=== PATIENT | female | born 1970 | race Caucasian/White ===

== ENCOUNTER 2017-11-28 06:32 | Inpatient (IN) ==
--- NOTE | 2017-11-28 07:17 | Emergency Department Report ---
Female Urogenital HPI - General Chief complaint: Urogenital-Female Stated complaint: excessive vag bleeding Time Seen by Provider: 11/28/17 07:01 Source: patient, RN notes reviewed, old records reviewed Mode of arrival: ambulatory Limitations: no limitations - History of Present Illness HPI Narrative: 47yo woman presents to the ER this AM for 'excessive vaginal bleeding'. When pt awoke and went to the bathroom today, she noted a 'large amount of dark red blood' in the toilet. Pt has not had a menses in '8 years', so new vaginal bleeding was concerning. Pt has had no discharge since, and is not wearing a pad on presentation. Pt was evaluated in this ER last night and dx'ed with a UTI - her first ever. She was given her first dose of bactrim and pyridium. She was not warned that pyridium can cause abnormally colored urine. MD Complaint: dysuria Onset (ago): hour(s) Radiation: non-radiating Severity: moderate Severity scale (1-10): 5 Duration: now resolved Associated symptoms: abdominal pain, nausea/vomiting, fever/chills - Related Data Home Medications Medication Instructions Recorded Confirmed Bisoprolol/Hctz 5/6.25 [Ziac] 1 tab PO DAILY #0 tab 12/12/13 11/28/17 Levothyroxine Sodium 137 mcg PO ACB #1 tab 12/12/13 11/28/17 Previous Rx's Medication Instructions Recorded Sulfamethox/Tmp [Bactrim Ds] 1 tab PO BID #20 tab 11/27/17 Allergies Allergy/AdvReac Type Severity Reaction Status Date / Time cefaclor Allergy Unknown RASH Verified 11/28/17 06:41 cephalexin Allergy Unknown RASH Verified 11/28/17 06:41 CEFZOL Allergy Unknown RASH Uncoded 11/28/17 06:41 Review of Systems All systems: reviewed and negative except as stated Constitutional: Reports: as per HPI, fever, weakness. Denies: chills, weight change, night sweats Genitourinary: Reports: as per HPI, dysuria, hematuria. Denies: urgency, frequency, discharge, abnormal menses, dyspareunia, genital lesions Musculoskeletal: Reports: as per HPI, back pain. Denies: joint swelling, arthralgia, myalgia [facility] Patient Stated Medical History Hypertension Yes Hx Urinary Tract Infection Yes Ovarian Cysts Yes Post Menopausal Yes Now No - Social History Smoking status: Current every day smoker Physical Exam - Limitations Limitations: no limitations - General General appearance: alert, in no apparent distress, obese - Normal Exams: Head:: Normocephalic without trauma Eyes:: Pupils are PERRLA w/ EOMI, No scleral icterus, irritation, or foreign bodies noted ENMT:: No facial trauma, nasal exudates, pharyngeal erythema, or exudates are noted Neck:: Full range of motion, without adenopathy Lymphatic:: No lymphadenopathy Musculoskeletal:: No tenderness, or deformity noted Integumentary:: No rashes, hives, or bruising noted Neurological:: Patient is alert, and oriented - Chest Chest inspection: Present: normal inspection, symmetric chest wall rise. Absent : tenderness, rash - Respiratory Respiratory exam: Present: normal lung sounds bilaterally. Absent: respiratory distress, wheezes, stridor, prolonged expiratory phase, crackles - Cardiovascular Cardiovascular exam: Present: regular rate, normal rhythm, normal heart sounds - Abdominal Exam Abdominal exam: Present: soft, tenderness, normal bowel sounds. Absent: distention, guarding, rebound, rigidity, heel tap sign, Rose's sign, Rovsing' s sign, tenderness at McBurney's Point Abdominal tenderness: Present: diffuse, mild - Back Exam Back exam: Present: CVA tenderness (R). Absent: CVA tenderness (L) - Psychiatric Psychiatric exam: Present: agitated, anxious Course - Consultations Consultation #1: Hospitalist: Pt accepted for admission. Time: 08:27 Vital Signs Temperature 101.4 F H 11/28/17 06:41 Pulse Rate 95 11/28/17 06:41 Respiratory Rate 20 11/28/17 06:41 Blood Pressure 127/65 11/28/17 06:41 Pulse Oximetry 95 11/28/17 06:41 Temperature 99.6 F 11/28/17 08:18 Pulse Rate 80 11/28/17 08:18 Respiratory Rate 20 11/28/17 06:41 Blood Pressure 114/61 11/28/17 08:18 Pulse Oximetry 96 11/28/17 08:18 Urogenital-Female - MDM Narrative Medical decision making narrative: Pt with neutropenic fever and PE findings c/w pyelonephritis. Pt given fluids and empiric atbx for pyelo. No evidence of sepsis. Hospitalist contacted for likely admission. Pt accepted for admission to hospital. - Differential Diagnosis Likely: urinary tract infection, bacterial vaginosis, ovarian cyst, vaginitis, cystitis - Medical Records Attestation: I reviewed the patient's medical records. - Lab Data Attestation: I reviewed the patient's lab results. Result diagrams: 11/28/17 07:24 11/28/17 07:24 Lab Results 11/28/17 11/28/17 11/28/17 Range/Units 07:24 07:24 07:24 WBC 0.6 L* (4.5-11.0) T/MM3 RBC 4.23 (4.00-5.20) M/MM3 Hgb 12.2 (12-16) GM/DL Hct 36.2 (36-46) % MCV 85.6 (80-100) UM3 MCH 28.8 (26-34) UUG MCHC 33.7 (31-37) GM/DL RDW Std Deviation 40.3 (36.9-50.2) FL Plt Count 60 L (130-400) T/MM3 MPV 11.6 (9.4-12.4) UM3 Immature Gran % (Auto) Not performed Neut % (Auto) Not performed Lymph % (Auto) Not performed [place] % (Auto) Not performed Eos % (Auto) Not performed Baso % (Auto) Not performed Neut # (Auto) Not performed Lymph # (Auto) Not performed [place] # (Auto) Not performed Eos # (Auto) Not performed Baso # (Auto) Not performed Abs Immat Gran (auto) Not performed Neutrophils % (Manual) 44.0 (33-66) % Band Neutrophils % 22.0 H (0-6) % Lymphocytes % (Manual) 26.0 (23-45) % Monocytes % (Manual) 8.0 (0-9.0) % Neutrophils # (Manual) 0.3 L (1.8-7.7) T/MM3 Band Neutrophils # 0.1 T/MM3 Lymphocytes # (Manual) 0.2 L (1-4.8) T/MM3 Monocytes # (Manual) 0.0 (0-0.8) T/MM3 RBC Morph Comment Normal Turbidity < 20 (0-20) Sodium 136 (134-144) MEQ/L Potassium 3.4 L (3.6-5) MEQ/L Chloride 105 (98-107) MEQ/L Carbon Dioxide 24 (22-30) MEQ/L Anion Gap 7 (5-15) MEQ/L BUN 12.0 (7-17) MG/DL Creatinine 0.7 (0.7-1.2) MG/DL GFR Calculation 89 BUN/Creatinine Ratio 17 (6-26) RATIO Glucose 158 H (65-110) MG/DL Calculated Osmolality 265 (261-280) MOSM/KG Calcium 8.1 L (8.4-10.2) MG/DL Icterus Index < 2 (0-7) Plasma Lactate < 0.5 L (0.6-2.2) MMOL/L Specimen Hemolysis < 15 (0-25) Ur Collection Type Urine Color (YELLOW) Urine Clarity Urine pH (5.0-8.0) Ur Specific [place] (1.015-1.025) Urine Protein (NEGATIVE) Urine Glucose (UA) (NEGATIVE) Urine Ketones (NEGATIVE) Urine Occult Blood (NEGATIVE) Urine Nitrate (NEGATIVE) Urine Bilirubin (NEGATIVE) Urine Urobilinogen (NORMAL) EU/DL Ur Leukocyte Esterase (NEGATIVE) Urinalysis Comment Urine Test (Negative) 11/28/17 11/28/17 Range/Units 07:35 07:39 WBC (4.5-11.0) T/MM3 RBC (4.00-5.20) M/MM3 Hgb (12-16) GM/DL Hct (36-46) % MCV (80-100) UM3 MCH (26-34) UUG MCHC (31-37) GM/DL RDW Std Deviation (36.9-50.2) FL Plt Count (130-400) T/MM3 MPV (9.4-12.4) UM3 Immature Gran % (Auto) Neut % (Auto) Lymph % (Auto) [place] % (Auto) Eos % (Auto) Baso % (Auto) Neut # (Auto) Lymph # (Auto) [place] # (Auto) Eos # (Auto) Baso # (Auto) Abs Immat Gran (auto) Neutrophils % (Manual) (33-66) % Band Neutrophils % (0-6) % Lymphocytes % (Manual) (23-45) % Monocytes % (Manual) (0-9.0) % Neutrophils # (Manual) (1.8-7.7) T/MM3 Band Neutrophils # T/MM3 Lymphocytes # (Manual) (1-4.8) T/MM3 Monocytes # (Manual) (0-0.8) T/MM3 RBC Morph Comment Turbidity (0-20) Sodium (134-144) MEQ/L Potassium (3.6-5) MEQ/L Chloride (98-107) MEQ/L Carbon Dioxide (22-30) MEQ/L Anion Gap (5-15) MEQ/L BUN (7-17) MG/DL Creatinine (0.7-1.2) MG/DL GFR Calculation BUN/Creatinine Ratio (6-26) RATIO Glucose (65-110) MG/DL Calculated Osmolality (261-280) MOSM/KG Calcium (8.4-10.2) MG/DL Icterus Index (0-7) Plasma Lactate (0.6-2.2) MMOL/L Specimen Hemolysis (0-25) Ur Collection Type Urine, void-cc/notcc Urine Color Price (YELLOW) Urine Clarity Clear Urine pH 6.0 (5.0-8.0) Ur Specific [place] >=1.030 H (1.015-1.025) Urine Protein Negative (NEGATIVE) Urine Glucose (UA) Negative (NEGATIVE) Urine Ketones Negative (NEGATIVE) Urine Occult Blood Negative (NEGATIVE) Urine Nitrate Negative (NEGATIVE) Urine Bilirubin Negative (NEGATIVE) Urine Urobilinogen 1.0 (NORMAL) EU/DL Ur Leukocyte Esterase Negative (NEGATIVE) Urinalysis Comment Microscopic not ind. Urine Test Negative (Negative) - Radiology Data Attestation: I reviewed the patient's radiology results. CXR: No acute cardiopulmonary abnormality. Critical Care Time Critical Care Time: Yes Total Critical Care Time: 35 Attestation: 35 min of critical care time assigned to this case due to its urgency, complexity of decision making, need for continued patient re-evaluation, or resources devoted to stabilizing the patient. Disposition Clinical Impression: Neutropenic fever, Pyelonephritis Disposition: 02 To [facility] Print Language: [place] Condition: Improved Prescriptions: No Action Bisoprolol/Hctz 5/6.25 [Ziac] 1 tab PO DAILY #0 tab Levothyroxine Sodium 137 mcg PO ACB #1 tab Sulfamethox/Tmp [Bactrim Ds] 1 tab PO BID #20 tab Time of Disposition: 08:34 - Seen By: physician
[2017-11-28] MEDS ORDERED: CIPROFLOXACIN IVPB 400 MG/200 ML BAG IV ONE (07:33)
[2017-11-28] MEDS ORDERED: NS 1,000 ML IV ONE (07:34)
--- NOTE | 2017-11-28 08:01 | XRay Report ---
Indication: Neutropenia PROCEDURE: XR chest 1V: Encounter: Initial Comparison: None FINDINGS: The lungs are clear. There is no abnormal airspace opacity, pleural effusion or pneumothorax identified. The heart size, pulmonary vasculature and mediastinum are within normal limits. No significant skeletal abnormality is seen. IMPRESSION: No acute cardiopulmonary abnormality. .
[2017-11-28] MEDS: SALINE FLUSH 10ml SYRINGE IVF PRN (08:05)
[2017-11-28] MEDS ORDERED: NS 1,000 ML IV SCH (09:00)
[2017-11-28 09:23] VITALS: BMI 30.4
[2017-11-28] MEDS ORDERED: IOHEXOL 300mg/ml 100ml INJECTION ONE (10:58)
[2017-11-28] MEDS: POTASSIUM CHLORIDE INJ 20 MEQ in NS 1,000 ML IV SCH (10:58)
[2017-11-28] MEDS ORDERED: SALINE FLUSH 10ml SYRINGE ONE (10:59)
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
[2017-11-28] MEDS: MEROPENEM 1 GM in NS 50 ML IV SCH ×2 (11:47→21:00)
[2017-11-28] MEDS: ONDANSETRON 4 MG/2 ML INJECTION IVP PRN (11:56)
[2017-11-28] MEDS: MORPHINE SULFATE 4mg INJECTION IVP PRN ×3 (11:57→17:19)
[2017-11-28] MEDS ORDERED: PIPERACILLIN/TAZOBACTAM 3.375 GM in NS 100 ML IV SCH (12:00)
--- NOTE | 2017-11-28 12:00 | CT Scan Report ---
Indication: right sided abdominal pain PROCEDURE: CT abdomen pelvis w con: Encounter: Initial Comparison: None Technique: Axial CT images were performed through the abdomen and pelvis after the administration of intravenous contrast. Coronal and sagittal two-dimensional reformats. Automated Exposure Control and Iterative Reconstruction dose reducing techniques were utilized. Contrast: Omnipaque 300 100 mL Findings: The lung bases are clear. The liver is normal. Gallbladder is surgically absent. The spleen is mildly enlarged. The pancreas and adrenal glands are within normal limits. The kidneys are normal apart from a small right renal cyst. No abdominal or pelvic lymphadenopathy. The bladder is grossly normal. Uterus and ovaries are normal. No free fluid. No evidence of a bowel obstruction. The appendix is normal in size with a tiny appendicolith at the appendiceal base. No adjacent inflammation. Bone windows show no acute findings. Impression: No acute disease process seen in the abdomen or pelvis. .
[2017-11-28] MEDS ORDERED: MORPHINE SULFATE 2mg INJECTION IVP ONE (16:11)
--- NOTE | 2017-11-28 16:13 | Magnetic Resonance Report ---
Indication: right hip pain/neutropenic PROCEDURE: MR hip RT wo con: Encounter: Initial Comparison: None Technique: Multiplanar multisequence MR imaging of the right hip was performed without contrast. Findings: There is no hip joint effusion. Exam is somewhat limited by motion artifact. Bone marrow signal intensity is normal. No acute fracture. No evidence of avascular necrosis. Muscular signal intensity is within normal limits. The hamstring origins are normal. No fluid in the greater trochanteric bursa. The ligamentum teres is intact. Impression: No acute abnormality. .
[2017-11-28] MEDS: NICOTINE 7 MG PATCH TD SCH (17:05)
[2017-11-28] MEDS: ACETAMINOPHEN 325 MG TABLET PO PRN (21:48)
[2017-11-28] MEDS: HYDROCODONE/APAP 7.5 MG/325 MG TABLET PO PRN (21:48)
[2017-11-29] MEDS ORDERED: IBUPROFEN 400 MG TABLET PO ONE (01:04)
[2017-11-29] MEDS: POTASSIUM CHLORIDE INJ 20 MEQ in NS 1,000 ML IV SCH (03:46)
[2017-11-29] MEDS: MEROPENEM 1 GM in NS 50 ML IV SCH ×3 (05:02→20:36)
[2017-11-29] MEDS: LEVOTHYROXINE 137 MCG TABLET PO SCH ×2 (06:52→06:56)
--- NOTE | 2017-11-29 08:06 | Consultation ---
CHIEF COMPLAINT Fever and hip pain. HISTORY OF PRESENT ILLNESS This is a 47-year-old female patient with history of vitiligo, hypothyroidism and hypertension on levothyroxine and Ziac who presented with a high-grade fever up to 103 yesterday to the ER and sent home on antibiotic Bactrim for UTI. The patient came back to the hospital with a persistent fever , 101, with chills. Her blood count showed white count 0.6 and platelets of 60, 000, hemoglobin 12.2. Creatinine 0.7. She is admitted for a neutropenic fever and rule out sepsis. She is on antibiotic meropenem. Blood culture pending. CT scan of the abdomen showed inflammatory changes in the cecal area consistent with neutropenic colitis/typhlitis. MRI of the pelvis done this evening - report is pending. The patient gave a history of fever in the past and her white count at that time was 3.4. She was not neutropenic at that time. Platelets in 2014 was normal, more than 200,000. The patient denies a diagnosis of blood disorder. She does not have bloodwork done other than the CBC from yesterday and a CBC in 2014. The patient had vaginal bleeding, seen by SHOE RECONDITIONER. REVIEW OF SYSTEMS GENERAL: Fever. No weight loss. RESPIRATORY: No shortness of breath. No cough. No hemoptysis. CARDIOVASCULAR: No chest pain. GI: No nausea or vomiting. No diarrhea or constipation. No blood in the stool. : She had vaginal bleeding. 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 MUSCULOSKELETAL: She has severe right-sided hip pain. PAST MEDICAL HISTORY Vitiligo. Hypothyroidism. Hypertension. MEDICATION Levothyroxine. Ziac. ALLERGIES Keflex. MEDICATION STARTED IN THE HOSPITAL Meropenem. FAMILY HISTORY Noncontributory. PHYSICAL EXAM VITAL SIGNS: Stable. GENERAL: She is in pain. Also, she has fever with chills. She feels cold. She looks sick. However, she is not hypotensive and she is not in acute distress. CHEST: Lungs are clear to auscultation. No wheezing. No crackles. Trachea is central. CARDIOVASCULAR: She is tachycardic. No murmur. No JVD. ABDOMEN: Benign. No organomegaly. No masses. Bowel sounds positive. MUSCULOSKELETAL: Tenderness over the hips, more on the right than the left. No deformities. SKIN: Whitish discoloration/vitiligo. EMPLOYEE BENEFITS MANAGER: No focal neurological deficits. Cranial nerves II-XII intact. EXTREMITIES: No edema. BREAST EXAM: Deferred. LYMPH SYSTEM: No cervical, supraclavicular, axillary or inguinal adenopathy. LAB White count 0.6. Hemoglobin 12.2. Platelets 60,000. Creatinine 0.7. IMAGING CT scan consistent with typhlitis. No organomegaly. No masses. No lymphadenopathy. ASSESSMENT 1. Severe leukopenia/neutropenia and thrombocytopenia. Differential diagnosis includes primary bone marrow disorder, infiltration or leukemia. Also, this could be an autoimmune cytopenia. 2. Neutropenic fever with neutropenic colitis/typhlitis on meropenem. 3. Intractable hip pain of unclear etiology. 4. History of hypothyroidism and vitiligo. RECOMMENDATION AND PLAN 1. Peripheral blood smear to be reviewed by Pathology. 2. Will wait for the MRI report. If the MRI of the hip shows a mass or infiltrative process, may need to do a biopsy from that area. Otherwise, the patient will need bone marrow aspiration and biopsy with flow cytometry and cytogenetics to rule out primary bone marrow disorder, infiltrative process or leukemia. 3. Continue broad spectrum antibiotics pending the blood cultures. 4. ANTHONY. Thank you for allowing me to participate in the management and care of your patient. SANDI
[2017-11-29] MEDS: NS with KCL 20 mEq 1,000 ML IV SCH ×2 (09:02→17:31)
[2017-11-29] MEDS: NICOTINE 7 MG PATCH TD SCH (09:04)
[2017-11-29] MEDS: NICOTINE PATCH REMOVAL TD SCH (09:05)
[2017-11-29] MEDS ORDERED: LIDOCAINE 1% (10mg/ml) 5ml PF SDV ONE ×2 (11:03→12:10)
[2017-11-29] MEDS ORDERED: BUPIVACAINE 0.5% (5mg/ml) PF 30ml INJ SDV ONE (11:03)
--- NOTE | 2017-11-29 11:18 | Progress Note ---
- Date 11/29/17 Subjective: F/U: neutropenic fever, neutropenic colitis to cecum, sepsis. Tammy is seen this morning while sleeping in bed and awakens easily with soft voice stimuli. She states that she is feeling better but is "very sleepy" having just received pain medications. She denies any current pain and states that she is hungry. She denies any chest pain, shortness of breath, nausea, vomiting, dysuria or diarrhea. She remains on clear liquids and has not had a BM since admission. Labs today revealed slight increase in WBC at 0.8, stable anemia and slight increase in platelets at 53. Mild, persistent hypokalemia (K 3.5) also noted. She was seen and evaluated by Dr. Lawrence who recommended obtaining bone marrow biopsy today for further evaluation of neutropenia. MRI of hip was stable. Objective Vital signs: Temperature 98.5 F 11/29/17 07:57 Pulse Rate 76 11/29/17 08:00 Respiratory Rate 16 11/29/17 07:57 Blood Pressure 107/67 11/29/17 08:00 Pulse Oximetry 97 11/29/17 08:00 Rhythm: Normal Sinus Rhythm Height/Weight/BMI: Height 5 ft 3 in Weight 172 lb 6.424 oz Body Mass Index 30.4 Comments: Patient resting in bed and awakens easily with soft voice stimuli. Appears sedated secondary to medication. - Constitutional Present: no acute distress, well nourished, well developed, cooperative - Routine HEENT Exam Head: Present: normocephalic, atraumatic Eye: Present: PERRL. Absent: conjunctival icterus ENT: Present: mucous membranes dry - Routine Respiratory Exam Present: CTA bilaterally. Absent: rales, respiratory distress, rhonchi, stridor , wheezes, crackles - Routine Cardiovascular Exam Present: RRR, S1, S2 - Routine Abdominal Exam Present: soft, non distended Comments: hypoactive bowel sounds; generalized tenderness focal in RLQ. - Routine Extremities Exam Present: edema (trace), non tender, full ROM, pulses intact - Routine Back/Spine/Pelvis Exam Back/Spine: Present: full ROM. Absent: vertebral tenderness - Routine Musculoskeletal Exam Musculoskeletal: Present: moving extremities well - Routine Skin Exam Present: intact, dry, warm. Absent: jaundice Comments: afebrile. - Routine Neurological Exam Present: alert, oriented X3, moving all extremities, normal speech. Absent: facial asymmetry - Routine Psychiatric Exam Present: cooperative Results - Labs CBC & Chem 7: 11/29/17 04:10 11/29/17 04:10 Microbiology Results: Microbiology 11/28/17 08:52 Peripheral/Iv Start Blood Culture - Preliminary No Growth After 1 Day 11/28/17 08:56 Peripheral/Iv Start Blood Culture - Preliminary No Growth After 1 Day - Impressions Date of Exam: 11/28/17 Type of Exam(s): MR hip RT wo con Reason for Exam(s): right hip pain/neutropenic Technique: Multiplanar multisequence MR imaging of the right hip was performed without contrast. Findings: There is no hip joint effusion. Exam is somewhat limited by motion artifact. Bone marrow signal intensity is normal. No acute fracture. No evidence of avascular necrosis. Muscular signal intensity is within normal limits. The hamstring origins are normal. No fluid in the greater trochanteric bursa. The ligamentum teres is intact. Impression: No acute abnormality. - Imaging and Cardiology CT scan - abdomen Status: image reviewed by me Additional comments: Date of Exam: 11/28/17 Type of Exam(s): CT abdomen pelvis w con Reason for Exam(s): right sided ab pain Indication: right sided abdominal pain PROCEDURE: CT abdomen pelvis w con: Encounter: Initial Comparison: None Technique: Axial CT images were performed through the abdomen and pelvis after the administration of intravenous contrast. Coronal and sagittal two-dimensional reformats. Automated Exposure Control and Iterative Reconstruction dose reducing techniques were utilized. Contrast: Omnipaque 300 100 mL Findings: The lung bases are clear. The liver is normal. Gallbladder is surgically absent. The spleen is mildly enlarged. The pancreas and adrenal glands are within normal limits. The kidneys are normal apart from a small right renal cyst. No abdominal or pelvic lymphadenopathy. The bladder is grossly normal. Uterus and ovaries are normal. No free fluid. No evidence of a bowel obstruction. The appendix is normal in size with a tiny appendicolith at the appendiceal base. No adjacent inflammation. Bone windows show no acute findings. Impression: No acute disease process seen in the abdomen or pelvis. ADDENDUM Addendum: Additional clinical history was provided at 1330 on November 28, 2017. The patient is severely neutropenic. Given this history there is evidence of mucosal irregularity involving the cecum and ascending colon. There is mild colonic wall thickening present. There is however no significant inflammatory change in the adjacent fat and no evidence of reactive mesenteric adenopathy. This constellation of findings is most suggestive of a neutropenic colitis/typhlitis. Assessment and Plan (1) Neutropenic fever Current visit: Yes Status: Acute (2) Abdominal pain Current visit: Yes Status: Acute Assessment and Plan: 47-year-old female with 4 days of acute right sided abdominal pain, fever and chills, initially believed to be UTI and started on Bactrim on 11/27/17 with repeat normal urine on 11/28/17 and acute neutropenic fever, bandemia and thrombocytopenia. Acute Medical History Neutropenic fever with bandemia (22%), present on admission - improving. SIRS (possible sepsis, though no known infection at time of admission), present on admission as indicated by: fever, tachycardia, tachypnea, neutropenia, bandemia, thrombocytopenia and hyperglycemia in nondiabetic - improving. Abdominal pain - NOS, present on admission - improving. Thrombocytopenia, present on admission- improving. Hypokalemia, present on admission - improving. Hypocalcemia, present on admission. Elevated LFTs - NEW DIAGNOSIS. Plan - 11/29/[address] Lawrence (onc) who recommended obtaining bone marrow biopsy for further evaluation of neutropenia - suspect possible autoimmune vs. leukemia. Following biopsy, initiate Granix 480mg daily until ANC >1.5. Appreciate his time and expertise. CT results indicated neutropenic colitic in the cecum. Will continue Meropenum for broad spectrum coverage. Consider discontinuation given blood cultures negative x [address] discuss with [address] Madrigal. Continue clear liquid diet for bowel rest. NS with KCL at 75cc/hr. Given additional KCl 40 mEq po now for mild hypokalemia. Recheck labs in AM. WBC trending up (WBC 0.8) and bandemia trending down (4%). LFTs slightly elevated (AST 65 and ALT 63). Continue to monitor. Continue to encourage IS for pulmonary toileting. SCDs for DVT prophylaxis. Recheck labs in Am to monitor blood counts, electrolytes and renal function. DVT Prophylaxis: SCD's Resuscitation Status: Full Code - Time spent with patient Time with patient PN: 25 minutes - Physician Narrative Physician: other (Dr. Madrigal) Narrative: Date: 11/29/17 Time: 1315 Patient reports she is still having pain. She would like to advance her diet more. She otherwise has no complaints. pain to R hip and thigh, alert and oriented Plan: bone marrow bx today, advance to full liquids, monitor labs Hospital Course Summary Disclaimer: The visit summary below is not to be considered part of the above Progress Note. Hospital Course: Plan - 11/28/17 (Admission) Admit to inpatient status under the care of Dr. Madrigal. + McBurney's point tenderness and RLQ pain on exam. Will obtain CT abdomen/ pelvis with contrast now for further evaluation of possible appendicitis or other abdominal source. Will maintain NPO status given acute abdomen and possible surgical intervention. Patient given 1L NS in ED. Will continue NS with KCl 20 mEq at 75cc/hr for continued hydration and treatment of mild hypokalemia. Recheck CMP in AM. Neutropenia on admission (WBC 0.6) with bandemia (22%). Will place on neutropenic precautions and monitor closely. Will recheck CBC now to assess accuracy of labs. Lactate and procalcitonin both negative on admission. Will monitor serial lactates. Given her acute abdomen with neutropenic fever and bandemia, will initiate meropenem 1g Q8 for empiric antimicrobial treatment given her allergy to cephalosporins. Blood cultures and urine culture from 11/27/17 pending. Patient started on Bactrim on 11/27/17 for suspected UTI and given Cipro 400mg IV in ED. Will discontinue Bactrim and Cipro as repeat urine today was negative. Patient admits to noncompliance with medications for hypothyroidism and hypertension. Will check TSH and restart home Synthroid dose. Restart home bisoprolol/HCTZ and monitor blood pressure closely. Dizziness with standing concerning for orthostatic hypotension. Will obtain orthostatic blood pressures. Up in room with assist only as patient is a fall risk. Nicotine patch for tobacco dependency. RT consulted for cessation counselling. Encourage IS for pulmonary toileting. SCDs for DVT prophylaxis. Upon discharge, patient's care will be returned to her PCP. Plan - 11/29/[address] Lawrence (onc) who recommended obtaining bone marrow biopsy for further evaluation of neutropenia - suspect possible autoimmune vs. leukemia. Following biopsy, initiate Granix 480mg daily until ANC >1.5. Appreciate his time and expertise. CT results indicated neutropenic colitic in the cecum. Will continue Meropenum for broad spectrum coverage. Consider discontinuation given blood cultures negative x 1 day[address] Will discuss with Dr. Madrigal. Continue clear liquid diet for bowel rest. NS with KCL at 75cc/hr. Given additional KCl 40 mEq po now for mild hypokalemia. Recheck labs in AM. WBC trending up (WBC 0.8) and bandemia trending down (4%). LFTs slightly elevated (AST 65 and ALT 63). Continue to monitor. Continue to encourage IS for pulmonary toileting. SCDs for DVT prophylaxis. Recheck labs in Am to monitor blood counts, electrolytes and renal function.
[2017-11-29] MEDS: ONDANSETRON 4 MG/2 ML INJECTION IVP PRN ×2 (11:21→21:12)
[2017-11-29] MEDS: HYDROCODONE/APAP 7.5 MG/325 MG TABLET PO PRN ×2 (12:39→21:12)
--- NOTE | 2017-11-29 13:11 | Progress Note ---
Oncology Subjective Drowsy, alone in room. Denies pain at time of intake. Reports intermittent fever/chills and night sweats past 4 days, none prior to that time. Chronic headaches, denies vision changes. Denies nausea or vomiting. Feels hungry. No BM for 4 days. General: + fever, + night sweats past 4 days. Eyes: No redness, no pain, no diplopia ENT: No mouth sores, no trouble swallowing Cardiac: No chest pain no palpitations Pulmonary: + cough, no shortness of breath, no wheezing Abdomen: Intermittent pain, no nausea vomiting, no BM for 4 days. : No urgency, frequency, dysuria, or hematuria Musculoskeletal: chronic rt. hip pain Neurological: No headaches, no focal weakness Skin: No rash, no sores Psychiatric: No anxiety, no depression Exam Vital signs: Temperature 98.5 F 11/29/17 07:57 Pulse Rate 76 11/29/17 08:00 Respiratory Rate 16 11/29/17 07:57 Blood Pressure 107/67 11/29/17 08:00 Pulse Oximetry 97 11/29/17 08:00 - Constitutional no acute distress, well developed, cooperative - Routine HEENT Exam Head: Present: normocephalic Eye: Present: EOMI ENT: Present: mucous membranes moist - Routine Neck Exam Present: supple. Absent: lymphadenopathy - Routine Respiratory Exam Present: decreased breath sounds, rhonchi - Routine Cardiovascular Exam Present: RRR. Absent: no murmur - Routine Abdominal Exam Present: soft, non distended, non tender - Routine Extremities Exam Present: edema Comments: trace pedal edema sophy. LE. No upper extremity edema - Routine Skin Exam Present: intact, dry - Routine Neurological Exam Present: alert, normal speech - Routine Psychiatric Exam Present: normal affect, cooperative Oncology Results - Labs CBC & Chem 7: 11/29/17 04:10 11/29/17 04:10 Labs: Short CBC 11/28/17 11/29/17 Range/Units 13:39 04:10 WBC 0.7 L* 0.8 L* (4.5-11.0) T/MM3 Hgb 11.9 L 11.8 L (12-16) GM/DL Hct 35.3 L 35.7 L (36-46) % Plt Count 48 L 53 L (130-400) T/MM3 BMP 11/29/17 04:10 Sodium 137 Potassium 3.5 L Chloride 102 Carbon Dioxide 26 BUN 9.0 Creatinine 0.8 Glucose 83 Calcium 7.7 L Liver Function 11/29/17 Range/Units 04:10 Total Bilirubin 0.20 (0.20-1.30) MG/DL AST 65 H D (14-36) U/L ALT 63 H (9-52) U/L Alkaline Phosphatase 88 (38-126) U/L Albumin 3.0 L (3.5-5.0) G/DL - Impressions Date of Exam: 11/29/17 Ordering Provider: Shaunna Reyes Type of Exam(s): CT biopsy bone marrow Reason for Exam(s): neutropenia, fever Indication:neutropenia, fever Procedure:CT biopsy bone marrow CT GUIDED BONE MARROW BIOPSY/ASPIRATION: The procedure including the benefits, risks, and alternatives were explained in detail to the patient. All of her questions were answered. They stated that they understood and wished to proceed. Informed consent was obtained. A pre-procedural timeout was done to verify the correct patient and procedure. Using sterile technique, local Xylocaine and Marcaine anesthesia, and CT guidance, an 11-gauge bone biopsy needle is advanced from a posterior approach into the right iliac bone. Approximately 10 cc of marrow was aspirated. We were unable to obtain a bone core. The needle was removed. There was no complication. Hemostasis was obtained and a compression bandage was applied. Following this, the patient was taken back to her room on the medical floor. She was in stable condition. Impression: Successful bone marrow biopsy from the posterior aspect of the Date of Exam: 11/28/17 Ordering Provider: Shaunna Reyes Type of Exam(s): MR hip RT wo con Reason for Exam(s): right hip pain/neutropenic Indication: right hip pain/neutropenic PROCEDURE: MR hip RT wo con: Encounter: Initial Comparison: None Technique: Multiplanar multisequence MR imaging of the right hip was performed without contrast. Findings: There is no hip joint effusion. Exam is somewhat limited by motion artifact. Bone marrow signal intensity is normal. No acute fracture. No evidence of avascular necrosis. Muscular signal intensity is within normal limits. The hamstring origins are normal. No fluid in the greater trochanteric bursa. The ligamentum teres is intact. Impression: No acute abnormality. . Assessment and Plan Assessment and Plan: ASSESSMENT 1. Severe leukopenia/neutropenia and thrombocytopenia. Differential diagnosis includes primary bone marrow disorder, infiltration or leukemia. Also, this could be an autoimmune cytopenia. 2. Neutropenic fever with neutropenic colitis, on meropenem. 3. Hip pain of unclear etiology. 4. History of hypothyroidism and vitiligo. 5. Tobacco addiction. Verbalizes started smoking age 45. Plan MRI of the hip with no definitive injury or abnormality. Bone marrow biopsy performed today. Awaiting those results. Continue supportive care, antibiotics , and will follow. Discussed benefits of stopping smoking, including reduced risk for stroke, heart disease. Also potentially affecting underlying blood disorder. Accepts stop smoking information. Plans to quit smoking now. Congratulated! Encouraged to continue use of nicotine patch, or lozenges as needed following hospital discharge. Encouraged to contact the quit line. - Time Spent With Patient Total time spent is greater than 50% in coordination of care (as documented) at patient's floor/unit and/or counseling patient: 25 - 35 minutes
--- NOTE | 2017-11-29 13:28 | CT Scan Report ---
Indication:neutropenia, fever Procedure:CT biopsy bone marrow CT GUIDED BONE MARROW BIOPSY/ASPIRATION: The procedure including the benefits, risks, and alternatives were explained in detail to the patient. All of her questions were answered. They stated that they understood and wished to proceed. Informed consent was obtained. A pre-procedural timeout was done to verify the correct patient and procedure. Using sterile technique, local Xylocaine and Marcaine anesthesia, and CT guidance, an 11-gauge bone biopsy needle is advanced from a posterior approach into the right iliac bone. Approximately 10 cc of marrow was aspirated. We were unable to obtain a bone core. The needle was removed. There was no complication. Hemostasis was obtained and a compression bandage was applied. Following this, the patient was taken back to her room on the medical floor. She was in stable condition. Impression: Successful bone marrow biopsy from the posterior aspect of the right iliac bone. Chavez Andrea RPA/NARESH performed this under my personal supervision. .
[2017-11-29] MEDS ORDERED: TBO-FILGRASTIM 480mcg/0.8ml INJECTION SQ SCH (17:15)
[2017-11-29] MEDS: SALINE FLUSH 10ml SYRINGE IVF PRN (20:25)
[2017-11-29] MEDS: MORPHINE SULFATE 4mg INJECTION IVP PRN (20:25)
[2017-11-29] MEDS: ACETAMINOPHEN 325 MG TABLET PO PRN (20:28)
[2017-11-30] MEDS: IBUPROFEN 400 MG TABLET PO PRN ×2 (04:45→19:53)
[2017-11-30] MEDS: MEROPENEM 1 GM in NS 50 ML IV SCH ×3 (04:46→19:55)
[2017-11-30] MEDS: HYDROCODONE/APAP 7.5 MG/325 MG TABLET PO PRN (05:00)
[2017-11-30] MEDS: LEVOTHYROXINE 137 MCG TABLET PO SCH (06:51)
[2017-11-30] MEDS: ONDANSETRON 4 MG/2 ML INJECTION IVP PRN (08:47)
[2017-11-30] MEDS: NS with KCL 20 mEq 1,000 ML IV SCH ×2 (08:51→10:34)
[2017-11-30] MEDS: NICOTINE 7 MG PATCH TD SCH (08:51)
[2017-11-30] MEDS: NICOTINE PATCH REMOVAL TD SCH (08:51)
--- NOTE | 2017-11-30 14:52 | Progress Note ---
- Date 11/30/17 Subjective: Patient reports no changes today. She still complains of pain however she is sleepy on exam and shows no signs of distress. Had a fever overnight with repeat blood cultures obtained. Objective Vital signs: Temperature 98.2 F 11/30/17 11:16 Pulse Rate 59 L 11/30/17 08:00 Respiratory Rate 16 11/30/17 07:50 Blood Pressure 99/60 11/30/17 07:51 Pulse Oximetry 100 11/30/17 07:51 Rhythm: Normal Sinus Rhythm Height/Weight/BMI: Height 5 ft 3 in Weight 78.3 kg Body Mass Index 30.4 - Constitutional Present: no acute distress - Routine HEENT Exam Head: Present: normocephalic, atraumatic Eye: Present: EOMI, conjunctivae pink ENT: Present: mucous membranes moist, nares patent - Routine Respiratory Exam Present: CTA bilaterally. Absent: respiratory distress - Routine Cardiovascular Exam Present: RRR, no murmur - Routine Abdominal Exam Present: soft, normoactive bowel sounds, non distended - Routine Extremities Exam Present: no edema, pulses intact, normal capillary refill - Routine Musculoskeletal Exam Musculoskeletal: Present: limited range of motion (R hip 2/2 to pain ) - Routine Skin Exam Present: intact, dry, warm - Routine Neurological Exam Present: alert, oriented X3, CN II-XII intact Results - Labs CBC & Chem 7: 11/30/17 04:17 11/30/17 04:17 Microbiology Results: Microbiology 11/28/17 08:52 Peripheral/Iv Start Blood Culture - Preliminary No Growth After 2 Days 11/28/17 08:56 Peripheral/Iv Start Blood Culture - Preliminary No Growth After 2 Days 11/30/17 04:39 Peripheral/Iv Start Blood Culture - Preliminary Culture Initiated - Results Pending Assessment and Plan (1) Neutropenic fever Current visit: Yes Status: Acute (2) Abdominal pain Current visit: Yes Status: Acute Assessment and Plan: 47-year-old female with 4 days of acute right sided abdominal pain, fever and chills, initially believed to be UTI and started on Bactrim on 11/27/17 with repeat normal urine on 11/28/17 and acute neutropenic fever, bandemia and thrombocytopenia. Assessment Neutropenic fever with bandemia--improving with Granix Neutropenic colitis Abdominal pain/hip pain with negative hip MRI Thrombocytopenia- improving. Hypokalemia-improving. Hypocalcemia Transaminitis Plan Dr. Lawrence (onc) consulted, appreciate recs-reports BM bx shows no acute leukemia Will give Granix 480mg x1 today per Dr. Lawrence CT results indicated neutropenic colitic in the cecum. Will continue Meropenum for broad spectrum coverage-will continue abx coverage until patient consistently not neutropenic, fever and abdominal pain resolved Advance diet as tolerated-will stop if any worsening pain Follow pending blood cultures Obtain RUQ ultrasound and hep panel due to increasing LFTs Continue to encourage IS for pulmonary toileting. Recheck labs in AM to monitor blood counts, electrolytes and renal function. SCDs for DVT prophylaxis. DVT Prophylaxis: SCD's Resuscitation Status: Full Code - Physician Narrative Narrative: Date: 11/30/17 Time: 1450 Hospital Course Summary Disclaimer: The visit summary below is not to be considered part of the above Progress Note. Hospital Course: Plan - 11/28/17 (Admission) Admit to inpatient status under the care of Dr. Madrigal. + McBurney's point tenderness and RLQ pain on exam. Will obtain CT abdomen/ pelvis with contrast now for further evaluation of possible appendicitis or other abdominal source. Will maintain NPO status given acute abdomen and possible surgical intervention. Patient given 1L NS in ED. Will continue NS with KCl 20 mEq at 75cc/hr for continued hydration and treatment of mild hypokalemia. Recheck CMP in AM. Neutropenia on admission (WBC 0.6) with bandemia (22%). Will place on neutropenic precautions and monitor closely. Will recheck CBC now to assess accuracy of labs. Lactate and procalcitonin both negative on admission. Will monitor serial lactates. Given her acute abdomen with neutropenic fever and bandemia, will initiate meropenem 1g Q8 for empiric antimicrobial treatment given her allergy to cephalosporins. Blood cultures and urine culture from 11/27/17 pending. Patient started on Bactrim on 11/27/17 for suspected UTI and given Cipro 400mg IV in ED. Will discontinue Bactrim and Cipro as repeat urine today was negative. Patient admits to noncompliance with medications for hypothyroidism and hypertension. Will check TSH and restart home Synthroid dose. Restart home bisoprolol/HCTZ and monitor blood pressure closely. Dizziness with standing concerning for orthostatic hypotension. Will obtain orthostatic blood pressures. Up in room with assist only as patient is a fall risk. Nicotine patch for tobacco dependency. RT consulted for cessation counselling. Encourage IS for pulmonary toileting. SCDs for DVT prophylaxis. Upon discharge, patient's care will be returned to her PCP. Plan - 11/29/[address] Lawrence (onc) who recommended obtaining bone marrow biopsy for further evaluation of neutropenia - suspect possible autoimmune vs. leukemia. Following biopsy, initiate Granix 480mg daily until ANC >1.5. Appreciate his time and expertise. CT results indicated neutropenic colitic in the cecum. Will continue Meropenum for broad spectrum coverage. Consider discontinuation given blood cultures negative x 1 day[address] Will discuss with Dr. Madrigal. Continue clear liquid diet for bowel rest. NS with KCL at 75cc/hr. Given additional KCl 40 mEq po now for mild hypokalemia. Recheck labs in AM. WBC trending up (WBC 0.8) and bandemia trending down (4%). LFTs slightly elevated (AST 65 and ALT 63). Continue to monitor. Continue to encourage IS for pulmonary toileting. SCDs for DVT prophylaxis. Recheck labs in Am to monitor blood counts, electrolytes and renal function. Plan 11/30 Dr. Lawrence (onc) consulted, appreciate recs-reports BM bx shows no acute leukemia Will give Granix 480mg x1 today per Dr. Lawrence CT results indicated neutropenic colitic in the cecum. Will continue Meropenum for broad spectrum coverage-will continue abx coverage until patient consistently not neutropenic, fever and abdominal pain resolved Advance diet as tolerated-will stop if any worsening pain Follow pending blood cultures Obtain RUQ ultrasound and hep panel due to increasing LFTs Continue to encourage IS for pulmonary toileting. Recheck labs in AM to monitor blood counts, electrolytes and renal function. SCDs for DVT prophylaxis.
[2017-11-30] MEDS ORDERED: TBO-FILGRASTIM 480mcg/0.8ml INJECTION SQ ONE (16:00)
--- NOTE | 2017-11-30 16:01 | Ultrasound Report ---
Indication: transaminitis PROCEDURE: US abdomen limited: Encounter: Initial Comparison: None Technique: Grayscale and color Doppler sonographic imaging of the right upper quadrant of the abdomen was performed. Findings: Hepatic parenchyma is homogeneous without evidence for focal mass. The gallbladder is surgically absent. Both the intra and extrahepatic biliary system are of normal caliber with the common duct measuring 7 mm in dimension. Visualized portions of the head and body of the pancreas are unremarkable. The right kidney is present without collecting system dilatation. The right kidney measures 11.8 cm in length. Small benign 7 mm cyst on the right kidney. Impression: Postcholecystectomy change, otherwise normal exam. .
[2017-11-30] MEDS: MORPHINE SULFATE 4mg INJECTION IVP PRN (19:53)
[2017-11-30] MEDS: SALINE FLUSH 10ml SYRINGE IVF PRN (19:54)
[2017-12-01] MEDS: MEROPENEM 1 GM in NS 50 ML IV SCH ×3 (03:46→22:44)
[2017-12-01] MEDS: IBUPROFEN 400 MG TABLET PO PRN (06:41)
[2017-12-01] MEDS: LEVOTHYROXINE 137 MCG TABLET PO SCH (06:41)
[2017-12-01] MEDS: HYDROCODONE/APAP 7.5 MG/325 MG TABLET PO PRN ×2 (06:42→22:51)
[2017-12-01] MEDS: NS with KCL 20 mEq 1,000 ML IV SCH ×2 (07:10→12:18)
[2017-12-01] MEDS: NICOTINE PATCH REMOVAL TD SCH (08:48)
[2017-12-01] MEDS: NICOTINE 7 MG PATCH TD SCH (08:48)
--- NOTE | 2017-12-01 10:12 | Progress Note ---
Oncology Subjective Continues with fevers. Feels tired. Exam Vital signs: Temperature 99.8 F 12/01/17 07:52 Pulse Rate 79 12/01/17 07:52 Respiratory Rate 20 12/01/17 07:52 Blood Pressure 119/71 12/01/17 07:52 Pulse Oximetry 91 12/01/17 07:52 - Constitutional no acute distress - Routine HEENT Exam Head: Present: normocephalic Eye: Present: EOMI, PERRL - Routine Neck Exam Present: supple. Absent: lymphadenopathy - Routine Respiratory Exam Present: CTA bilaterally. Absent: accessory muscle use - Routine Cardiovascular Exam Present: RRR, no murmur - Routine Abdominal Exam Present: soft, non distended, non tender - Routine Extremities Exam Absent: cyanosis, clubbing, edema - Routine Skin Exam Present: dry, warm - Routine Neurological Exam Present: CN II-XII intact - Routine Psychiatric Exam Present: normal affect Oncology Results - Labs CBC & Chem 7: 11/30/17 04:17 11/30/17 04:17 Labs: Short CBC 11/30/17 Range/Units 04:17 WBC 3.3 L D (4.5-11.0) T/MM3 Hgb 12.0 (12-16) GM/DL Hct 36.0 (36-46) % Plt Count 48 L (130-400) T/MM3 Laboratory Tests 11/28/17 11/29/17 11/30/17 07:34 04:10 04:17 AST 36 65 H D 151 H D ALT 44 63 H 92 H Alkaline Phosphatase 71 88 139 H D Assessment and Plan Assessment and Plan: ASSESSMENT 1. Severe leukopenia/neutropenia and thrombocytopenia. Differential diagnosis includes primary bone marrow disorder, infiltration or leukemia. Also, this could be an autoimmune cytopenia. Bone marrow did not show evidence of leukemia. Cytogenetics are pending. She does have hepatitis C. There is some component of probable hypersplenism. Liver functions are increasing worrisome for a viral illness causing bone marrow hypoplasia 2. Neutropenic fever with neutropenic colitis, on meropenem. Continues with low-grade fever 3. Hip pain of unclear etiology. 4. History of hypothyroidism and vitiligo. 5. Tobacco addiction. Verbalizes started smoking age 45. Plan MRI of the hip with no definitive injury or abnormality. Bone marrow biopsy performed on . Dr. Washington called Dr. Lamas with finding of no leukemia.. Continue supportive care, antibiotics, and will follow. Continue to encourage tobacco cessation - Time Spent With Patient Total time spent is greater than 50% in coordination of care (as documented) at patient's floor/unit and/or counseling patient: less than 15 minutes
--- NOTE | 2017-12-01 16:34 | Progress Note ---
- Date 12/01/17 Subjective: Tammy complained of being fatigued when seen. She otherwise denied any symptoms that were posed including dyspnea, palpitations, nausea, abdominal pain, dysuria , or lightheadedness. She had low-grade fevers overnight with maximum temperature of 100.4 yesterday evening. Neutropenia has resolved. Nursing reports patient is drowsy often during the day and has poor appetite. Objective Vital signs: Temperature 99.8 F 12/01/17 07:52 Pulse Rate 80 12/01/17 16:00 Respiratory Rate 20 12/01/17 07:52 Blood Pressure 119/71 12/01/17 07:52 Pulse Oximetry 91 - RA 12/01/17 07:52 EXAM General-NAD, drowsy-required constant stimulation to elicit responses HEENT-conjunctiva clear, sclera anicteric Lungs-respirations nonlabored, decreased airflow but breath sounds are clear Cardiac-regular rhythm, S1-S2 Abd-soft, nontender, bowel sounds present Ext-without edema Psych-flat affect, withdrawn - Height/Weight/BMI: Height 1.6 m Weight 78.8 kg Body Mass Index 30.4 Results - Labs CBC & Chem 7: 12/01/17 10:39 12/01/17 10:39 Labs: S45 B40 L11 M2 Bilirubin 0.3, AST 241, ALT 141, alkaline phosphatase 162 ANTHONY negative Microbiology Results: Microbiology 11/28/17 08:52 Peripheral/Iv Start Blood Culture - Preliminary No Growth After 3 Days 11/28/17 08:56 Peripheral/Iv Start Blood Culture - Preliminary No Growth After 3 Days 11/30/17 04:39 Peripheral/Iv Start Blood Culture - Preliminary No Growth After 1 Day - Imaging and Cardiology US - abdomen Status: image reviewed by me (liver parenchyma homogenous, no mass, ducts normal ) Assessment and Plan (1) Neutropenic fever Current visit: Yes Status: Acute (2) Abdominal pain Current visit: Yes Status: Acute Assessment and Plan: 47-year-old female with 4 days of acute right sided abdominal pain, fever and chills, initially believed to be UTI and started on Bactrim on 11/27/17 with repeat normal urine on 11/28/17 and acute neutropenic fever, bandemia and thrombocytopenia. Assessment Neutropenic fever with bandemia--improving with Granix Neutropenic colitis Abdominal pain/hip pain with negative hip MRI Thrombocytopenia Hypokalemia-Resolved. Hypocalcemia Transaminitis Hepatitis C-antibody positive Hypothyroidism hx depression Plan Neutropenia has resolved-precautions discontinued. Received Granix 2. Bone marrow biopsy negative for leukemia, ANTHONY negative. Persistent thrombocytopenia but platelet count is stable thus far. Blood cultures all negative to date; on meropenem empirically for neutropenic colitis. Will not expand antibiotics given resolution of neutropenia. Transaminases continue to climb slowly, hepatitis C identified-viral load pending Potassium corrected, calcium corrects for albumin. Oral intake is poor, little activity-may be due to acute illness but worrisome for underlying depression. Continue IV fluids at present pending improvement in oral intake. Nutritional supplements ordered. Discussed with Dr. Flores, sonogram of liver reviewed. DVT Prophylaxis: SCD's Resuscitation Status: Full Code - Physician Narrative Narrative: Date: 12/01/17 Time: 1631 Hospital Course Summary Disclaimer: The visit summary below is not to be considered part of the above Progress Note. Hospital Course: Plan - 11/28/17 (Admission) Admit to inpatient status under the care of Dr. Madrigal. + McBurney's point tenderness and RLQ pain on exam. Will obtain CT abdomen/ pelvis with contrast now for further evaluation of possible appendicitis or other abdominal source. Will maintain NPO status given acute abdomen and possible surgical intervention. Patient given 1L NS in ED. Will continue NS with KCl 20 mEq at 75cc/hr for continued hydration and treatment of mild hypokalemia. Recheck CMP in AM. Neutropenia on admission (WBC 0.6) with bandemia (22%). Will place on neutropenic precautions and monitor closely. Will recheck CBC now to assess accuracy of labs. Lactate and procalcitonin both negative on admission. Will monitor serial lactates. Given her acute abdomen with neutropenic fever and bandemia, will initiate meropenem 1g Q8 for empiric antimicrobial treatment given her allergy to cephalosporins. Blood cultures and urine culture from 11/27/17 pending. Patient started on Bactrim on 11/27/17 for suspected UTI and given Cipro 400mg IV in ED. Will discontinue Bactrim and Cipro as repeat urine today was negative. Patient admits to noncompliance with medications for hypothyroidism and hypertension. Will check TSH and restart home Synthroid dose. Restart home bisoprolol/HCTZ and monitor blood pressure closely. Dizziness with standing concerning for orthostatic hypotension. Will obtain orthostatic blood pressures. Up in room with assist only as patient is a fall risk. Nicotine patch for tobacco dependency. RT consulted for cessation counselling. Encourage IS for pulmonary toileting. SCDs for DVT prophylaxis. Upon discharge, patient's care will be returned to her PCP. Plan - 11/29/[address] Lawrence (onc) who recommended obtaining bone marrow biopsy for further evaluation of neutropenia - suspect possible autoimmune vs. leukemia. Following biopsy, initiate Granix 480mg daily until ANC >1.5. Appreciate his time and expertise. CT results indicated neutropenic colitic in the cecum. Will continue Meropenum for broad spectrum coverage. Consider discontinuation given blood cultures negative x 1 day. Will discuss with Dr. Madrigal. Continue clear liquid diet for bowel rest. NS with KCL at 75cc/hr. Given additional KCl 40 mEq po now for mild hypokalemia. Recheck labs in AM. WBC trending up (WBC 0.8) and bandemia trending down (4%). LFTs slightly elevated (AST 65 and ALT 63). Continue to monitor. Continue to encourage IS for pulmonary toileting. 11/30/17 Dr. Lawrence (onc) consulted, appreciate recs-reports BM bx shows no acute leukemia Will give Granix 480mg x1 today per Dr. Lawrence CT results indicated neutropenic colitic in the cecum. Will continue Meropenum for broad spectrum coverage-will continue abx coverage until patient consistently not neutropenic, fever and abdominal pain resolved Advance diet as tolerated-will stop if any worsening pain Follow pending blood cultures Obtain RUQ ultrasound and hep panel due to increasing LFTs Continue to encourage IS for pulmonary toileting. 12/01/17 Neutropenia has resolved-precautions discontinued. Received Granix 2. Bone marrow biopsy negative for leukemia, ANTHONY negative. Persistent thrombocytopenia but platelet count is stable thus far. Blood cultures all negative to date; on meropenem empirically for neutropenic colitis. Will not expand antibiotics given resolution of neutropenia. Transaminases continue to climb slowly, hepatitis C identified-viral load pending Potassium corrected, calcium corrects for albumin. Oral intake is poor, little activity-may be due to acute illness but worrisome for underlying depression. Continue IV fluids at present pending improvement in oral intake. Nutritional supplements ordered.
[2017-12-01] MEDS: ONDANSETRON 4 MG/2 ML INJECTION IVP PRN (17:08)
[2017-12-02] MEDS: ACETAMINOPHEN 325 MG TABLET PO PRN (00:44)
[2017-12-02] MEDS: NS with KCL 20 mEq 1,000 ML IV SCH (03:06)
[2017-12-02] MEDS: MEROPENEM 1 GM in NS 50 ML IV SCH ×2 (05:19→13:02)
[2017-12-02] MEDS: LEVOTHYROXINE 137 MCG TABLET PO SCH (05:59)
[2017-12-02] MEDS: NICOTINE PATCH REMOVAL TD SCH (10:01)
[2017-12-02] MEDS: NICOTINE 7 MG PATCH TD SCH (10:01)
--- NOTE | 2017-12-02 11:43 | Progress Note ---
Oncology Subjective The patient feels good. No pain. No fever. Exam Vital signs: Temperature 97.7 F 12/02/17 07:50 Pulse Rate 72 12/02/17 08:00 Respiratory Rate 16 12/02/17 07:50 Blood Pressure 108/71 12/02/17 07:50 Pulse Oximetry 90 12/02/17 07:50 - Constitutional no acute distress, cooperative - Routine Respiratory Exam Absent: rales, respiratory distress, rhonchi, wheezes, crackles - Routine Cardiovascular Exam Present: RRR, no murmur. Absent: JVD - Routine Abdominal Exam Present: soft, non tender - Routine Extremities Exam Present: no edema - Routine Skin Exam Comments: Vitiligo. Oncology Results - Labs CBC & Chem 7: 12/02/17 04:56 12/02/17 04:56 Labs: Short CBC 12/02/17 Range/Units 04:56 WBC 6.8 (4.5-11.0) T/MM3 Hgb 12.6 (12-16) GM/DL Hct 37.5 (36-46) % Plt Count 48 L (130-400) T/MM3 BMP 12/02/17 04:56 Sodium 134 Potassium 4.0 Chloride 101 Carbon Dioxide 27 BUN 10.0 Creatinine 0.6 L Glucose 84 Calcium 7.7 L Liver Function 12/02/17 Range/Units 04:56 Total Bilirubin 0.40 (0.20-1.30) MG/DL AST 452 H D (14-36) U/L ALT 201 H (9-52) U/L Alkaline Phosphatase 208 H D (38-126) U/L Albumin 2.6 L (3.5-5.0) G/DL Assessment and Plan Assessment and Plan: ASSESSMENT 1. Severe leukopenia/neutropenia and thrombocytopenia. This could be viral induced or autoimmune. Bone marrow negative for infiltration or leukemia. Cytogenetics pending. 2. Neutropenic fever, resolved. 3. Hip pain of unclear etiology, resolved. 4. History of hypothyroidism and vitiligo. 5. Tobacco addiction. Verbalizes started smoking age 45. Plan Form hematology/oncology standpoint the patient could be discharged home on follow-up in the office to go over the bone marrow result. - Time Spent With Patient Total time spent is greater than 50% in coordination of care (as documented) at patient's floor/unit and/or counseling patient: 25 - 35 minutes
--- NOTE | 2017-12-02 15:47 | Progress Note ---
- Date 12/02/17 Subjective: Tammy continues to report occasional cough and sputum production and reports that she is a little bit lightheaded when she is up to the bathroom. She denied dyspnea or nausea. Her appetite is poor and she indicated she's had a little bit of diarrhea. She is voiding frequently without dysuria. She denied fever or chills overnight although maximum temperature of 100.2 was recorded by nursing. Objective Vital signs: Temperature 98.5 F 12/02/17 15:15 Pulse Rate 67 12/02/17 15:15 Respiratory Rate 18 12/02/17 15:15 Blood Pressure 120/71 12/02/17 15:15 Pulse Oximetry 94 - RA 12/02/17 15:15 EXAM General-NAD, alert, more interactive than she was yesterday HEENT-EOMI, conjunctiva clear, sclera anicteric, oropharynx clear Lungs-respirations nonlabored, fair airflow, breath sounds clear Cardiac-regular rhythm, S1-S2 Abd-soft, nontender, bowel sounds present Ext-trace edema Neuro-MAEW, manager equity symmetric/strong sensation intact to light touch 4 extremities Psych-calm, cooperative - Rhythm: Normal Sinus Rhythm Height/Weight/BMI: Height 1.6 m Weight 78.5 kg Body Mass Index 30.4 Results - Labs CBC & Chem 7: 12/02/17 04:56 12/02/17 04:56 Labs: S34 B51 L9 M6 AST 452, ALT 201, alkaline phosphatase 208, bilirubin 1.9 Microbiology Results: Microbiology 11/28/17 08:52 Peripheral/Iv Start Blood Culture - Preliminary No Growth After 4 Days 11/28/17 08:56 Peripheral/Iv Start Blood Culture - Preliminary No Growth After 4 Days 11/30/17 04:39 Peripheral/Iv Start Blood Culture - Preliminary No Growth After 2 Days Assessment and Plan (1) Neutropenic fever Current visit: Yes Status: Acute (2) Abdominal pain Current visit: Yes Status: Acute Assessment and Plan: 47-year-old female with 4 days of acute right sided abdominal pain, fever and chills, initially believed to be UTI and started on Bactrim on 11/27/17 with repeat normal urine on 11/28/17 and acute neutropenic fever, bandemia and thrombocytopenia. Assessment Neutropenic fever with bandemia--improving with Granix Neutropenic colitis Abdominal pain/hip pain with negative hip MRI Thrombocytopenia Hypokalemia-Resolved. Hypocalcemia Transaminitis Hepatitis C-antibody positive Hypothyroidism hx depression Plan Neutropenia has resolved-precautions discontinued 12/01. Received Granix 2 on and 11/30. Bone marrow biopsy negative for leukemia, ANTHONY negative. Persistent thrombocytopenia but platelet count is stable thus far. Blood cultures all negative to date; possible neutropenic colitis on initial CT- with resolution of neutropenia and benign abdomen will discontinue antibiotics and reassess in a.m. Transaminases continue to climb slowly, hepatitis C identified-viral load pending. Potassium corrected, calcium corrects for albumin. Oral intake is poor, little activity-may be due to acute illness but worrisome for underlying depression. Discontinue IV fluids; ambulate in the halls. Approaching discharge but need to demonstrate patient will be able to manage self-care and determine/coordinate outpatient needs. Will require outpatient follow-up with primary care for management of probable hepatitis C. DVT Prophylaxis: SCD's Resuscitation Status: Full Code - Physician Narrative Narrative: Date: 12/02/17 Time: 1544 Hospital Course Summary Disclaimer: The visit summary below is not to be considered part of the above Progress Note. Hospital Course: Plan - 11/28/17 (Admission) Admit to inpatient status under the care of Dr. Madrigal. + McBurney's point tenderness and RLQ pain on exam. Will obtain CT abdomen/ pelvis with contrast now for further evaluation of possible appendicitis or other abdominal source. Will maintain NPO status given acute abdomen and possible surgical intervention. Patient given 1L NS in ED. Will continue NS with KCl 20 mEq at 75cc/hr for continued hydration and treatment of mild hypokalemia. Recheck CMP in AM. Neutropenia on admission (WBC 0.6) with bandemia (22%). Will place on neutropenic precautions and monitor closely. Will recheck CBC now to assess accuracy of labs. Lactate and procalcitonin both negative on admission. Will monitor serial lactates. Given her acute abdomen with neutropenic fever and bandemia, will initiate meropenem 1g Q8 for empiric antimicrobial treatment given her allergy to cephalosporins. Blood cultures and urine culture from 11/27/17 pending. Patient started on Bactrim on 11/27/17 for suspected UTI and given Cipro 400mg IV in ED. Will discontinue Bactrim and Cipro as repeat urine today was negative. Patient admits to noncompliance with medications for hypothyroidism and hypertension. Will check TSH and restart home Synthroid dose. Restart home bisoprolol/HCTZ and monitor blood pressure closely. Dizziness with standing concerning for orthostatic hypotension. Will obtain orthostatic blood pressures. Up in room with assist only as patient is a fall risk. Nicotine patch for tobacco dependency. RT consulted for cessation counselling. Encourage IS for pulmonary toileting. SCDs for DVT prophylaxis. Upon discharge, patient's care will be returned to her PCP. Plan - 11/29/[address] Lawrence (onc) who recommended obtaining bone marrow biopsy for further evaluation of neutropenia - suspect possible autoimmune vs. leukemia. Following biopsy, initiate Granix 480mg daily until ANC >1.5. Appreciate his time and expertise. CT results indicated neutropenic colitic in the cecum. Will continue Meropenum for broad spectrum coverage. Consider discontinuation given blood cultures negative x [address] day[address] Will discuss with Dr[address] Madrigal. Continue clear liquid diet for bowel rest. NS with KCL at 75cc/hr. Given additional KCl 40 mEq po now for mild hypokalemia. Recheck labs in AM. WBC trending up (WBC 0.8) and bandemia trending down (4%). LFTs slightly elevated (AST 65 and ALT 63). Continue to monitor. Continue to encourage IS for pulmonary toileting. 11/30/17 Dr. Lawrence (onc) consulted, appreciate recs-reports BM bx shows no acute leukemia Will give Granix 480mg x1 today per Dr. Lamas CT results indicated neutropenic colitic in the cecum. Will continue Meropenum for broad spectrum coverage-will continue abx coverage until patient consistently not neutropenic, fever and abdominal pain resolved Advance diet as tolerated-will stop if any worsening pain Follow pending blood cultures Obtain RUQ ultrasound and hep panel due to increasing LFTs Continue to encourage IS for pulmonary toileting. 12/01/17 Neutropenia has resolved-precautions discontinued. Received Granix 2. Bone marrow biopsy negative for leukemia, ANTHONY negative. Persistent thrombocytopenia but platelet count is stable thus far. Blood cultures all negative to date; on meropenem empirically for neutropenic colitis. Will not expand antibiotics given resolution of neutropenia. Transaminases continue to climb slowly, hepatitis C identified-viral load pending Potassium corrected, calcium corrects for albumin. Oral intake is poor, little activity-may be due to acute illness but worrisome for underlying depression. Continue IV fluids at present pending improvement in oral intake. Nutritional supplements ordered. 12/02/17 White count remains stable and patient more interactive although oral intake remains poor. Increase activity, discontinue antibiotics and IV fluids. Consider discharge tomorrow; will need follow-up with primary care established due to possible hepatitis C and potential need for treatment.
[2017-12-02] MEDS: HYDROCODONE/APAP 7.5 MG/325 MG TABLET PO PRN (21:47)
[2017-12-03] MEDS: LEVOTHYROXINE 137 MCG TABLET PO SCH (05:47)
[2017-12-03] MEDS: NICOTINE 7 MG PATCH TD SCH (09:01)
[2017-12-03] MEDS: SALINE FLUSH 10ml SYRINGE IVF PRN (09:01)
[2017-12-03 15:18] VITALS: BP 106/68; RESP 18; TEMP 98.7; O2SAT 92
[2017-12-03 17:14] VITALS: PULSE 65
[2017-12-03] MEDS: HYDROCODONE/APAP 7.5 MG/325 MG TABLET PO PRN (20:15)
--- NOTE | 2017-12-03 21:56 | Discharge Summary ---
Discharge Information Date of admission: 11/28/17 08:37 Anticipated date of discharge: 12/03/17 Attending Physician: Sheila Sawant MD Consults: Consulting Provider: Nick Flores Reason For Exam: neutropenia, thrombocytopenia - Discharge Diagnosis (1) Neutropenic fever Status: Acute (2) Abdominal pain Status: Acute Neutropenic fever with bandemia Neutropenic colitis Abdominal pain Transaminitis Thrombocytopenia Hypokalemia-Resolved. Hypocalcemia/hypo-albuminemia Hepatitis C-antibody positive Hypothyroidism hx depression - Procedures Procedures: CT-guided bone marrow biopsy with aspiration on 11/29/17. Biopsy obtained from the posterior aspect of the right iliac bone. - Laboratory Labs: On 11/28/17: White count 0.6 with differential 44% neutrophils, 22% bands, 26% lymphocytes, and 8% monocytes. Hemoglobin was 12.2 and platelet count 60K. Initial liver enzymes were unremarkable however on second hospital day transaminases were mildly elevated and mini progressively through the hospital course with peak AST 452 and peak ALT on 12/02. Bilirubin was consistently normal and alkaline phosphatase was slightly elevated peaking at 234 on discharge. On the date of discharge AST was 450 and ALT 186. ANTHONY negative Hepatitis C antibody positive, viral RNA pending Hepatitis a IgM antibody negative, hepatitis B negative Respiratory viral panel negative 12/03/17 04:09 12/03/17 04:09 - Microbiology Microbiology 11/28/17 08:52 Peripheral/Iv Start Blood Culture - Final No Growth After 5 Days 11/28/17 08:56 Peripheral/Iv Start Blood Culture - Final No Growth After 5 Days 11/30/17 04:39 Peripheral/Iv Start Blood Culture - Preliminary No Growth After 3 Days - Radiology Radiology: Chest x-ray on 11/28/17 revealed no cardiopulmonary abnormality. ------ CT abdomen and pelvis with contrast on 11/28/17: The lung bases are clear. The liver is normal. Gallbladder is surgically absent. The spleen is mildly enlarged. The pancreas and adrenal glands are within normal limits. The kidneys are normal apart from a small right renal cyst. No abdominal or pelvic lymphadenopathy. The bladder is grossly normal. Uterus and ovaries are normal. No free fluid. No evidence of a bowel obstruction. The appendix is normal in size with a tiny appendicolith at the appendiceal base. No adjacent inflammation. Bone windows show no acute findings. Impression: No acute disease process seen in the abdomen or pelvis. Addendum: Additional clinical history was provided at 1330 on November 28, 2017. The patient is severely neutropenic. Given this history there is evidence of mucosal irregularity involving the cecum and ascending colon. There is mild colonic wall thickening present. There is however no significant inflammatory change in the adjacent fat and no evidence of reactive mesenteric adenopathy. This constellation of findings is most suggestive of a neutropenic colitis/typhlitis. ----- MRI of the right hip without contrast on 11/28/17: There is no hip joint effusion. Exam is somewhat limited by motion artifact. Bone marrow signal intensity is normal. No acute fracture. No evidence of avascular necrosis. Muscular signal intensity is within normal limits. The hamstring origins are normal. No fluid in the greater trochanteric bursa. The ligamentum teres is intact. Impression: No acute abnormality. ----- Abdominal ultrasound, limited, on 11/30/17 Hepatic parenchyma is homogeneous without evidence for focal mass. The gallbladder is surgically absent. Both the intra and extrahepatic biliary system are of normal caliber with the common duct measuring 7 mm in dimension. Visualized portions of the head and body of the pancreas are unremarkable. The right kidney is present without collecting system dilatation. The right kidney measures 11.8 cm in length. Small benign 7 mm cyst on the right kidney. Impression: Postcholecystectomy change, otherwise normal exam. - Pathology Bone marrow biopsy demonstrated normocellular marrow for patient's age with increased or adequate cell lines, subtle disc granulopoiesis without excess blasts. No evidence of marrow infiltration by lymphoma, plasma cell dyscrasias, granulomas, or metastatic malignancy. Adequate iron stores were present. History of Present Illness HPI: Tammy Sauceda is a pleasant 47-year-old female who presented to [facility] on for evaluation of abdominal and right flank pain. She reports that on she started to have right sided abdominal pain which has progressively gotten worse and in now in her right flank and buttock as well. She denies any known injury or trauma. She admits to a fever as high as 103 at home with chills. She denies any cough, congestion, chest pain, shortness of breath, nausea, vomiting, dysuria or diarrhea. She has not had much of an appetite but is trying to drink liquids, though she is drinking less than normal. Evaluation on 11/27/17 revealed UA with + nitrate, 3-5 WBC, 2+ bacteria and >50 squamous epithelial cells. She was started on Bactrium for presumed UTI, though cultures are pending and discharged home. Throughout the night, she reports that her pain progressively got worse and states that she has been getting dizzy with movement and standing as well as increased generalized weakness. She returned to [facility] on 11/28/17 for reevaluation. Upon arrival, she was noted to be febrile at 101.4 with tachycardia (HR 95), tachypnea (RR 20 ) and pulse ox 95% on room air. Clinically, she reportedly appeared very sick. Labs were obtained and revealed neutropenia (WBC 0.6) with bandemia (22%) and thrombocytopenia (Plt 60). She was also noted to have hypokalemia (K 3.4) and hypocalcemia (Ca 8.1). Repeat UA was negative. CXR showed no acute cardiopulmonary abnormalities. Due to the initial diagnosis of UTI, she was given a dose of Cipro 400mg IV with 1L NS while in the ED. Dr. Madrigal was consulted and accepted her into inpatient status due to her neutropenic fever with abdominal pain and concern for SIRS/Sepsis, though no acute infection source was known at the time of admission. Her length of stay is expected to exceed more than 2 over nights as she will require close monitoring of her hemodynamic stability, IV antibiotics, CT abdomen/pelvis with possible surgical consult. Extensive review of her limited past medical records was conducted and it was noted that she had leukopenia (WBC 3.3) in 2013 in conjunction with an orbital cellulitis but not known history of thrombocytopenia. Objective Vital signs: Temperature 98.7 F 12/03/17 15:16 Pulse Rate 65 12/03/17 16:00 Respiratory Rate 18 12/03/17 15:16 Blood Pressure 106/68 12/03/17 15:16 Pulse Oximetry 92 12/03/17 15:16 NAD, alert, responds to questions appropriately Respirations nonlabored Abdomen soft, mildly distended, persistent tenderness in the right upper quadrant, bowel sounds present Height/Weight/BMI: Height 1.6 m Weight 76.8 kg Body Mass Index 30.4 Hospital Course This is a general summary of the patient's hospital course. For more details refer to the complete medical record. Hospital course: Plan - 11/28/17 (Admission) Admit to inpatient status under the care of Dr. Madrigal. + McBurney's point tenderness and RLQ pain on exam. Will obtain CT abdomen/ pelvis with contrast now for further evaluation of possible appendicitis or other abdominal source. Will maintain NPO status given acute abdomen and possible surgical intervention. Patient given 1L NS in ED. Will continue NS with KCl 20 mEq at 75cc/hr for continued hydration and treatment of mild hypokalemia. Recheck CMP in AM. Neutropenia on admission (WBC 0.6) with bandemia (22%). Will place on neutropenic precautions and monitor closely. Will recheck CBC now to assess accuracy of labs. Lactate and procalcitonin both negative on admission. Will monitor serial lactates. Given her acute abdomen with neutropenic fever and bandemia, will initiate meropenem 1g Q8 for empiric antimicrobial treatment given her allergy to cephalosporins. Blood cultures and urine culture from 11/27/17 pending. Patient started on Bactrim on 11/27/17 for suspected UTI and given Cipro 400mg IV in ED. Will discontinue Bactrim and Cipro as repeat urine today was negative. Patient admits to noncompliance with medications for hypothyroidism and hypertension. Will check TSH and restart home Synthroid dose. Restart home bisoprolol/HCTZ and monitor blood pressure closely. Dizziness with standing concerning for orthostatic hypotension. Will obtain orthostatic blood pressures. Up in room with assist only as patient is a fall risk. Nicotine patch for tobacco dependency. RT consulted for cessation counselling. Encourage IS for pulmonary toileting. SCDs for DVT prophylaxis. Upon discharge, patient's care will be returned to her PCP. 11/29/[address] Lawrence (onc) who recommended obtaining bone marrow biopsy for further evaluation of neutropenia - suspect possible autoimmune vs. leukemia. Following biopsy, initiate Granix 480mg daily until ANC >1.5. Appreciate his time and expertise. CT results indicated neutropenic colitic in the cecum. Will continue Meropenum for broad spectrum coverage. Consider discontinuation given blood cultures negative x 1 day[address] Will discuss with Dr. Madrigal. Continue clear liquid diet for bowel rest. NS with KCL at 75cc/hr. Given additional KCl 40 mEq po now for mild hypokalemia. Recheck labs in AM. WBC trending up (WBC 0.8) and bandemia trending down (4%). LFTs slightly elevated (AST 65 and ALT 63). Continue to monitor. Continue to encourage IS for pulmonary toileting. 11/30/17 Dr. Lawrence (onc) consulted, appreciate recs-reports BM bx shows no acute leukemia Will give Granix 480mg x1 today per Dr. Lamas CT results indicated neutropenic colitic in the cecum. Will continue Meropenum for broad spectrum coverage-will continue abx coverage until patient consistently not neutropenic, fever and abdominal pain resolved Advance diet as tolerated-will stop if any worsening pain Follow pending blood cultures Obtain RUQ ultrasound and hep panel due to increasing LFTs Continue to encourage IS for pulmonary toileting. 12/01/17 Neutropenia has resolved-precautions discontinued. Received Granix 2. Bone marrow biopsy negative for leukemia, ANTHONY negative. Persistent thrombocytopenia but platelet count is stable thus far. Blood cultures all negative to date; on meropenem empirically for neutropenic colitis. Will not expand antibiotics given resolution of neutropenia. Transaminases continue to climb slowly, hepatitis C identified-viral load pending Potassium corrected, calcium corrects for albumin. Oral intake is poor, little activity-may be due to acute illness but worrisome for underlying depression. Continue IV fluids at present pending improvement in oral intake. Nutritional supplements ordered. 12/02/17 White count remains stable and patient more interactive although oral intake remains poor. Increase activity, discontinue antibiotics and IV fluids. Consider discharge tomorrow; will need follow-up with primary care established due to possible hepatitis C and potential need for treatment. 12/03/17 Tammy complains of some abdominal cramping today and loose stools but otherwise doing well. She is ambulated short distances and reports adequate strength to function at home. Appetite is slowly improving although she is still not eating well. She again asked about discharge and after she had an opportunity to speak with case management to initiate assistance with financial professional office to begin Medicaid application and to help coordinate follow-up with the primary care physician I felt she could be discharged home safely. I advised Tammy that she will require follow-up with Dr. Lamas for final results of bone marrow biopsy and for reassessment of blood counts as her platelet count remains borderline low and white count may require further treatment if it drops again. Additionally she was advised that there is strong suspicion that she has acute hepatitis C and may require treatment in the near future. Testing is not yet back and she will need to have follow-up appointment for results and to review management options. She was referred to providers a [facility] and is asked to schedule follow-up appointment there is soon as possible. She is to follow-up with Dr. Lamas in approximately one week. Liver enzymes appear to have peaked and clinically she is more interactive yesterday and today than she was prior to that time. Increased activity and oral intake were encouraged. Time spent with patient: discharge greater than 30 minutes Resuscitation Status: Full Code Discharge Plan - Discharge Disposition Discharge Date: 12/03/17 Disposition: Discharged Home, Self-Care *Condition: Improved Reason For Visit (Visit label in EMR): Neutropenic Fever - NOS - Discharge Medications *Discharge Medications: New Hydrocodone/APAP 7.5/325 [Randolph 7.5/325] 1 tab PO QID PRN #20 tab PRN Reason: Pain Nicotine Patch [Nicoderm] 7 mg TD DAILY #14 patch Continue Bisoprolol/Hctz 5/6.25 [Ziac] 1 tab PO DAILY #0 tab Levothyroxine Sodium 137 mcg PO ACB #1 tab Discontinued Sulfamethox/Tmp [Bactrim Ds] 1 tab PO BID #20 tab - Discharge Packet/Instructions *Diet: Regular *Activity: As tolerates *Pain Management/Treatment: Tylenol or Randolph as needed per package instructions. Should not take more than 8 tablets combined daily of Tylenol plus Randolph. *Wound Care: Not applicable Additional Instructions: Schedule appointment with a provider at [facility] as soon as possible-case management gave you a list of providers that are available to see. The phone number at [facility] is [phone]. You probably have hepatitis C and may require additional treatment. Schedule a follow-up appointment with Dr. Lamas with in the next 1-2 weeks to review final results of bone marrow and recheck blood counts, [phone]. Continue nicotine patches applying one daily to help you stop smoking. If you began having weird dreams take the patch off before you go to bed. *Expected Signs/Symptoms: Pain in the right upper abdomen, diminished appetite, drowsiness *Notify Physician if: Fevers, bleeding, worsening pain, your skin or eyes turned yellow *[facility] Hours [phone] [facility] *After Business Hours Contact: Call [facility] at [phone] and ask that the on-call physician be paged failure provider or Dr. Lamas *Pending Lab/Results: Follow up w/Provider (results of final hepatitis C results ) - Referrals/Follow Up *Referrals/Follow Up: Rosalia Lamas MD [Physician] - 1 Week - Patient Handouts Patient Handouts: Hepatitis C (GEN), Pancytopenia (GEN) - Dismissal Complete Discharge Instructions are:: Complete Physician Narrative - Narrative Attestation Narrative: Date: 12/03/17 Time: 2149
== END 2017-12-03 20:37 | disposition home or self-care (01) | DRG 810 ==
LOC: ED 06:32 → SUATTDRO 08:37 → MED 08:37
PROVIDERS: ADMIT Pediatrics; ATTEND Internal Medicine